=== PATIENT | female | born 1990 | race Caucasian/White ===

== ENCOUNTER → 2019-10-18 | Outpatient (CLI) | payer OTHER | END | disposition home or self-care (01) | LOC: EDBD 08:02 → NUCLEAR 08:02 | DX: M79.662 Pain in left lower leg (principal) ==

== ENCOUNTER 2019-11-06 09:32 | Outpatient (CLI) | payer OTHER | END 2019-11-06 09:36 | disposition home or self-care (01) | LOC: RAD 09:32 | PROVIDERS: ATTEND Podiatrist Foot Surgery | DX: M77.31 Calcaneal spur, right foot (principal); M77.32 Calcaneal spur, left foot ==

== ENCOUNTER 2019-11-14 07:47 | Outpatient (CLI) | payer OTHER | END 2019-11-14 07:55 | disposition home or self-care (01) | LOC: MRI 07:47 | DX: M54.16 Radiculopathy, lumbar region (principal); M54.5 Low back pain | CPT/HCPCS: 72148 ==